=== PATIENT | female | born 1990 | race Two or more races ===

== ENCOUNTER 2016-04-30 20:47 | Emergency (ER) | payer BC, OTHER ==
[~2016-04-30] VITALS: Ht 162.6 cm; Wt 90.7 kg
[~2016-04-30 20:47] MED LIST: NAPR500T8 PO
[2016-04-30 21:01] VITALS: BP 129/70
[2016-04-30] MEDS ORDERED: ALBUTEROL SULFATE 2.5 MG/3 ML NEBU. NEB ONE (22:30)
[2016-04-30] MEDS ORDERED: PRED20TA PO (23:29)
--- NOTE | 2016-04-30 23:30 | PHYS DOC ---
Past Medical History Past Medical History: No Pertinent History, Asthma Past Surgical History: Additional Past Surgical Histo: csections Additional Information: Nonsmoker Alcohol Use: None Drug Use: None Adult General Chief Complaint Chief Complaint: Congestion HPI HPI Patient is a 26 year old female who presents with nasal congestion and productive cough starting today. She reports right ear pain without sore throat or fever. She's had nausea with 5 episodes of vomiting today. The patient is currently with LMP 01/16/16. She has had nausea and vomiting frequently throughout her . She denies any abdominal pain or vaginal bleeding. Patient estimates that she has used her inhaler approximately 10 times a day without relief of her cough. She does not have a nebulizer at home. She does not have a PCP or an OB doctor. Review of Systems Review of Systems Constitutional: Denies fever or chills. [] Eyes: Denies change in visual acuity, redness, or eye pain. [] HENT: Denies sore throat. Reports right ear pain and nasal congestion. Respiratory: Reports productive cough and shortness of breath. Cardiovascular: Denies chest pain, palpitations or edema. [] GI: Denies abdominal pain, bloody stools or diarrhea. Reports nausea and vomiting. : Denies dysuria, hematuria or urinary frequency. Denies vaginal bleeding. Musculoskeletal: Denies back pain or joint pain. [] Integument: Denies rash or skin lesions. [] Neurologic: Denies headache, focal weakness or sensory changes. [] Endocrine: Denies polyuria or polydipsia. [] Psych: Denies anxiety or depression. [] All systems reviewed and negative unless otherwise stated in the HPI. Current Medications Current Medications Current Medications Medications (Trade) Dose Ordered Sig/Gareth Start Time Stop Time Status Last Admin Dose Admin Albuterol Sulfate (Ventolin Neb Soln) 2.5 mg 1X ONCE 04/30/16 22:30 04/30/16 22:31 DC 04/30/16 22:53 2.5 MG Allergies Allergies Allergies Coded Allergies Type Severity Reaction Last Updated Verified No Known Drug Allergies 04/30/16 No Physical Exam Physical Exam Constitutional: Well developed, well nourished, no acute distress, non-toxic appearance. [] HENT: Normocephalic, atraumatic, bilateral external ears normal, oropharynx moist, no oral exudates, nose normal. Bilateral TMs without erythema or bulging. There is no posterior pharyngeal erythema or tonsillar edema. Bilateral nasal turbinates are swollen and erythematous with purulent drainage. Eyes: PERRLA, EOMI, conjunctiva normal, no discharge. [] Neck: Normal range of motion, no tenderness, supple, no stridor. [] Cardiovascular: Heart rate regular rhythm, no murmur [] Lungs & Thorax: There are wheezes in the lung bases bilaterally without rales or rhonchi. Patient is not in respiratory distress. Abdomen: Bowel sounds normal, soft, no tenderness, no masses, no pulsatile masses. [] Skin: Warm, dry, no erythema, no rash. [] Back: No tenderness, no CVA tenderness. [] Extremities: No tenderness, no cyanosis, no clubbing, ROM intact, no edema. [] Neurologic: Alert and oriented X 3, normal motor function, normal sensory function, no focal deficits noted. [] Psychologic: Affect normal, judgement normal, mood normal. [] Current Patient Data Vital Signs Vital Signs Date Time Temp Pulse Resp B/P Pulse Ox O2 Delivery O2 Flow Rate FiO2 04/30/16 22:54 Room Air 04/30/16 21:01 98.5 108 20 100 98.5 EKG EKG [] Radiology/Procedures Radiology/Procedures [] Course & Med Decision Making Course & Med Decision Making Pertinent Labs and Imaging studies reviewed. (See chart for details) Patient reports improved breathing after albuterol nebulizer solution in the emergency department. Her lungs are clear to auscultation after the nebulizer treatment. She is discharged with prescription for prednisone. She is instructed to continue her albuterol inhaler at home. She may take Tylenol for pain or fever. She is given contact information for OB for follow-up for her . Return precautions were discussed. She verbalizes understanding and agrees with plan. Dragon Disclaimer Dragon Disclaimer This electronic medical record was generated, in whole or in part, using a voice recognition dictation system. Departure Departure Impression: Primary Impression: Asthma Disposition: 01 HOME, SELF-CARE Condition: IMPROVED Referrals: KAI MUSA MD Patient Instructions: Asthma, Adult, [id number] Additional Instructions: Please take all of the prescribed steroid pills. Please use your inhaler as directed for cough or shortness of breath. You may take Tylenol for fever or pain. Please follow up with the OB doctor listed below for care. Return to the emergency department if you have any new or concerning symptoms. Scripts Prednisone 20 Mg [id number] Mg PO DAILY 5 Days Prov:ISMAEL SMITH 04/30/16 Problem Qualifiers Primary Impression: Asthma ISMAEL SMITH Apr 30, 2016 23:30
== END 2016-04-30 23:44 | disposition home or self-care (01) ==
LOC: ER 20:47
DX: O99.519 Diseases of the respiratory system complicating pregnancy, unspecified trimester (principal); J45.909 Unspecified asthma, uncomplicated; O21.0 Mild hyperemesis gravidarum; H92.01 Otalgia, right ear; Z3A.00 Weeks of gestation of pregnancy not specified
CPT/HCPCS: 94250; 94640; 99283-25